=== PATIENT | female | born 1935 | race Caucasian/White ===

== ENCOUNTER → 2017-01-20 | Outpatient (CLI) | payer OTHER | LOC: NUC 11:00 | DX: Z12.31 Encounter for screening mammogram for malignant neoplasm of breast (principal); M81.0 Age-related osteoporosis without current pathological fracture; M85.88 Other specified disorders of bone density and structure, other site; Z78.0 Asymptomatic menopausal state ==

== ENCOUNTER → 2017-01-22 | Outpatient (CLI) | payer OTHER | LOC: RAD 09:52 | DX: N60.01 Solitary cyst of right breast (principal) ==

== ENCOUNTER → 2018-02-04 | Outpatient (CLI) | payer OTHER | LOC: RAD 12:45 | DX: Z12.31 Encounter for screening mammogram for malignant neoplasm of breast (principal) ==

== ENCOUNTER → 2019-02-10 | Outpatient (CLI) | payer OTHER | LOC: BC 07:56 | DX: Z12.31 Encounter for screening mammogram for malignant neoplasm of breast (principal) ==

== ENCOUNTER → 2019-04-06 | Outpatient (CLI) | payer OTHER ==
[~2019-04-06] MED LIST: CALTRATE-600 W1 EACH PO; COZAAR100 MG PO; LEVO-T50 MCG PO; NORVASC5 M1 PO
--- NOTE | ~2019-04-06 | P ---
[facility] [place] [address] PROCEDURE REPORT Name: SHELBY LEMUS Room #: REG [facility]#: [id number] Admission: 04/06/19 Attend Phys: Jasper Marcelo Discharge: Date of : 33 Report #: [id number] THIS REPORT FOR: cc: Mitchel Dennis MD, Rene P. MD McElhinney, Christian C. MD ~ CC: Jasper Dennis MD DATE OF SERVICE: 04/06/2019 PROCEDURE PERFORMED: Colonoscopy with polypectomies. HISTORY OF PRESENT ILLNESS: The patient is an 83-year-old female with a history of colon polyps 5 years ago, here for routine followup. She denies any symptoms. No family history of colon cancer. DESCRIPTION OF PROCEDURE: The risks and benefits of the procedure were explained to the patient, those risks including but not limited to bleeding, perforation and the risk of sedation. She understood these risks and gave me informed consent. Sedation was given using propofol per anesthesia. Next, a digital rectal exam was initially performed, which was normal. Next, using a standard Olympus colonoscope, the scope was placed in the patient's anus and advanced under direct vision to the cecum. The overall prep was excellent. In the cecum, a 4 mm sessile polyp was noted. This was removed with cold forceps, otherwise normal. The ileocecal valve was normal. In the proximal ascending colon, there were a total of four sessile polyps. The smallest was 4 mm and removed by cold forceps, the larger 3 were 6-1.2 cm. All were removed by snare cautery. The transverse and descending colon were normal. A few small scattered diverticula were noted in the sigmoid colon, otherwise normal. The rectal mucosa was normal. On retroflexion, no abnormalities were noted. The scope was then withdrawn and the procedure terminated. The patient tolerated the procedure well. IMPRESSION: 1. Colonic polyps. 2. Sigmoid diverticulosis. 3. Otherwise, normal colonoscopy. RECOMMENDATIONS: 1. Await biopsy results. 2. Repeat colonoscopy likely unnecessary due to the patient's age. [address] [address] PROCEDURE REPORT Name: ALLANSHELBY L Room #: REG [facility]#: [id number] Admission: 04/06/19 Attend Phys: Jasper Marcelo Discharge: Date of : 33 Report #: [id number] Thank you for allowing me to participate in her care. By: [id number] Jasper Powell MD /nt
--- NOTE | 2019-04-07 13:08 | PATH ---
[facility] [place] [address] PATHOLOGY RPT PROCEDURE Name: SHELBY HURTADO Room #: REG [facility] Mathias#: [id number] Admission: 04/06/19 Date of : 33 Discharge: Report #: [id number] Path Case #: [id number] [facility] Accession Number: [id number] . 01 Material submitted: . PART A: cecum - BX OF CECAL POLYP PART B: colon - POLYP AT ASCENDING COLON X4. Modifiers: ascending . 01 Clinical history: . History of polyps . 02 Diagnosis: A. Colonic mucosa "biopsy of cecal polyp": - Tubular adenoma. - There is no evidence of high-grade dysplasia or malignancy. . B. Colonic mucosa "polyp at ascending colon x4": - Fragments of tubular adenomas. - There is no evidence of high-grade dysplasia or malignancy. (SHA:anjali; 04/07/2019) S 04/07/2019 0918 Local . 02 Electronically signed: . Wu Landon MD, Pathologist NPI- [id number] . 01 Gross description: . A. The specimen is received in formalin, labeled "Shelby Hurtado", "biopsy of cecal polyp". Received are multiple segments of pale coles soft tissue ranging in size from 0.1 cm to 0.2 cm. The specimen is entirely submitted in cassette A1. . B. The specimen is received in formalin, labeled "Shelby Hurtado", "polyp at ascending colon x4". Received are multiple polypoid segments of pale coles soft tissue, ranging in size from 0.1 cm to 0.6 cm. The specimen is filtered and entirely submitted in cassette B1.(REPLACED BY [facility]; 04/06/2019) EMILIA/MURPHY 04/06/2019 1816 Local . 02 Pathologist provided ICD-10: D12.0, D12.2 . 02 CPT . 746040, 130362 Specimen Comment: A courtesy copy of this report has been sent to [phone], [phone] Specimen Comment: [phone] Specimen Comment: [place] [address] PATHOLOGY RPT PROCEDURE Name: SHELBY HURTADO [id number]mission: 04/06/19 Date of : 33 Discharge: Report #: [id number] Path Case #: [id number] Performed at: [address] [facility] [address] [place] [address] [address], [place], [place] [id number] MD Balaji Sanabria MD Phone: [phone] Performed at: [address] [id number] MD Dari Rodriguez MD Phone: [phone]
== END | disposition home or self-care (01) ==
LOC: GI 07:50
DX: Z12.11 Encounter for screening for malignant neoplasm of colon (principal); Z86.010 Personal history of colon polyps; D12.0 Benign neoplasm of cecum; D12.2 Benign neoplasm of ascending colon; K57.30 Diverticulosis of large intestine without perforation or abscess without bleeding; I10 Essential (primary) hypertension; E03.9 Hypothyroidism, unspecified; Z98.890 Other specified postprocedural states; Z79.899 Other long term (current) drug therapy
CPT/HCPCS: 62110; 62900

== ENCOUNTER → 2019-07-13 | Outpatient (CLI) | payer OTHER | LOC: ULTRA 11:11 | DX: N28.1 Cyst of kidney, acquired (principal); R74.0 Nonspecific elevation of levels of transaminase and lactic acid dehydrogenase [LDH]; R74.8 Abnormal levels of other serum enzymes ==

== ENCOUNTER → 2020-02-20 | Outpatient (CLI) | payer OTHER | LOC: BC 08:43 | PROVIDERS: ATTEND Family Medicine | DX: Z12.31 Encounter for screening mammogram for malignant neoplasm of breast (principal) ==

== ENCOUNTER → 2021-02-26 | Outpatient (CLI) | payer OTHER | LOC: BC 02-20 13:50 | PROVIDERS: ATTEND Family Medicine | DX: Z12.31 Encounter for screening mammogram for malignant neoplasm of breast (principal) ==